=== PATIENT | male | born 1940 | race Caucasian/White ===

== ENCOUNTER 2019-10-28 13:26 | Emergency (ER) | payer MEDICARE ==
[2019-10-28] MEDS ORDERED: 0.9 % SODIUM CHLORIDE 1,000 ML BAG IV ONE (14:25)
[2019-10-28] MEDS ORDERED: CLINDAMYCIN PHOS/D5W 900MG 900 MG/50 ML BAG IVPB ONE (14:25)
[2019-10-28] MEDS ORDERED: ACETAMINOPHEN 500 MG TABLET PO ONE (14:25)
--- NOTE | 2019-10-28 14:26 | Emergency Department Record ---
History of Present Illness - General Chief Complaint: Animal Bite Stated Complaint: CAT BITE RT HAND Time Seen by Provider: 10/28/19 14:19 Source: Patient Mode of Arrival: Ambulatory - History of Present Illness Initial Comments: Patient's own cat bit him last night. The cat is UTD on immunizations. The patient is UTD on immunizations as well. He is borderline diabetic. MD Complaint: Animal bite (right hand) Onset/Timin -: Days(s) Animal: Cat Mechanism: Bite Context: Playing with animal, Provoked, Other - Related Data Patient Tetanus UTD (within 5 yrs): Yes Home Medications Medication Instructions Recorded Confirmed Last Taken Albuterol Sulfate [Proair Hfa] 1 - 2 puff IH .EVERY 4-6 HOURS PRN 10/28/19 10/28/19 10/28/19 Ascorbic Acid [Vitamin C] 500 mg PO DAILY 10/28/19 10/28/19 10/28/19 Aspirin [Lo-Dose Aspirin EC] 81 mg PO DAILY 10/28/19 10/28/19 10/28/19 Atorvastatin Calcium [Lipitor] 40 mg PO QHS 10/28/19 10/28/19 10/28/19 Carvedilol [Coreg] 25 mg PO DAILY 10/28/19 10/28/19 10/28/19 Cetirizine HCl [Zyrtec] 10 mg PO DAILY 10/28/19 10/28/19 10/28/19 Cholecalciferol (Vitamin D3) 2,000 unit PO DAILY 10/28/19 10/28/19 10/28/19 [Vitamin D3] Cyanocobalamin (Vitamin B-12) 1,000 mcg PO DAILY 10/28/19 10/28/19 10/28/19 [Vitamin B-12] Ezetimibe [Zetia] 10 mg PO DAILY 10/28/19 10/28/19 10/28/19 Fluticasone Propionate [Flovent 50 mcg IH DAILY 10/28/19 10/28/19 10/28/19 Diskus] Fluticasone/Vilanterol 200/25 1 puff INH RESP.Q12H 10/28/19 10/28/19 10/28/19 [Breo Ellipta 200-25 Mcg INH] Furosemide [Lasix] 20 mg PO DAILY 10/28/19 10/28/19 10/28/19 Glipizide 10 mg PO DAILY 10/28/19 10/28/19 10/28/19 Losartan Potassium 100 mg PO DAILY 10/28/19 10/28/19 10/28/19 Melatonin 3 mg PO QHS 10/28/19 10/28/19 10/28/19 Metformin HCl 500 mg PO DAILY 10/28/19 10/28/19 10/28/19 Montelukast Sodium [Singulair] 10 mg PO DAILY 10/28/19 10/28/19 10/28/19 Multivitamin [Daily Multiple 1 each PO DAILY 10/28/19 10/28/19 10/28/19 Vitamin] [place]-3 Fatty Acids/Fish Oil [Fish 1 each PO DAILY 10/28/19 10/28/19 10/28/19 Oil 1,000 mg Capsule] Omeprazole 20 mg PO DAILY 10/28/19 10/28/19 10/28/19 Tiotropium Excelsior [Spiriva] 2 puff IH DAILY 10/28/19 10/28/19 10/28/19 Previous Rx's Medication Instructions Recorded Clindamycin HCl [Cleocin HCl] 300 mg PO QID #39 capsule 10/28/19 Allergies Allergy/AdvReac Type Severity Reaction Status Date / Time No Known Drug Allergies Allergy Verified 10/28/19 14:14 Travel Screening - Travel/Exposure Within Last 30 Days Have you traveled within the last 30 days?: No - Travel/Exposure Within Last Year Have you traveled outside the [place] in the last year?: No - Additonal Travel Details Have you been exposed to anyone with a communicable illness?: No - Travel Symptoms Symptom Screening: None Review of Systems Reviewed: No additional complaints except as noted below Constitutional: Reports: As per HPI. Denies: Chills, Fever, Malaise, Night sweats, Weakness, Weight change Eyes: Reports: As per HPI. Denies: Eye discharge, Eye pain, Photophobia, Vision change ENT: Reports: As per HPI. Denies: Congestion, Dental pain, Ear pain, Epistaxis, Hearing loss, Throat pain Respiratory: Reports: As per HPI. Denies: Cough, Dyspnea, Hemoptysis, Stridor, Wheezes Cardiovascular: Reports: As per HPI. Denies: Arrhythmia, Chest pain, Dyspnea on exertion, Edema, Murmurs, Orthopnea, Palpitations, Paroxysmal nocturnal dyspnea, Rheumatic Fever, Syncope Endocrine: Reports: As per HPI. Denies: Fatigue, Heat or cold intolerance, Polydipsia, Polyuria Gastrointestinal: Reports: As per HPI. Denies: Abdominal pain, Constipation, Diarrhea, Hematemesis, Hematochezia, Melena, Nausea, Vomiting Genitourinary: Reports: As per HPI. Denies: Dysuria, Frequency, Hematuria, Incontinence, Retention, Testicular pain, Testicular mass, Urgency Musculoskeletal: Reports: As per HPI. Denies: Arthralgia, Back pain, Gout, Joint swelling, Myalgia, Neck pain Skin: Reports: As per HPI. Denies: Bruising, Change in color, Change in hair/nails, Lesions, Pruritus, Rash Neurological: Reports: As per HPI. Denies: Abnormal gait, Confusion, Headache, Numbness, Paresthesias, Seizure, Tingling, Tremors, Vertigo, Weakness Psychiatric: Reports: As per HPI. Denies: Anxiety, Auditory hallucinations, Depression, Homicidal thoughts, Suicidal thoughts, Visual hallucinations Hematological/Lymphatic: Reports: As per HPI. Denies: Anemia, Blood Clots, Easy bleeding, Easy bruising, Swollen glands Past Medical History - SOCIAL HISTORY Smoking Status: Never smoker Alcohol Use: Rare Drug Use: None - RESPIRATORY Hx Respiratory Disorders: Yes Hx Pneumonia: Yes - CARDIOVASCULAR Hx Cardio Disorders: Yes Hx Hypertension: Yes - NEURO Hx Neuro Disorders: No - GI Hx GI Disorders: Yes Hx Diverticulitis: Yes Hx Hiatal Hernia: Yes - Hx Genitourinary Disorders: No - ENDOCRINE Hx Endocrine Disorders: No Hx Diabetes: Yes (borderline) - MUSCULOSKELETAL Hx Musculoskeletal Disorders: No - PSYCH Hx Psych Problems: No Family Medical History Any Significant Family History?: No Physical Exam - General General Appearance: Alert, Oriented x3, Cooperative, No acute distress - Head Head exam: Normal inspection - Eye Eye exam: Normal appearance, PERRL Pupils: Normal accommodation - ENT ENT exam: Normal exam, Mucous membranes moist, Normal external ear exam, Normal orophraynx, TM's normal bilaterally Ear exam: Normal external inspection. negative: External canal tenderness Nasal Exam: Normal inspection. negative: Discharge, Sinus tenderness Mouth exam: Normal external inspection, Tongue normal Teeth exam: Normal inspection. negative: Dental caries Throat exam: Normal inspection. negative: Tonsillar erythema, Tonsillar exudate - Neck Neck exam: Normal inspection, Full ROM. negative: Tenderness - Respiratory Respiratory exam: Normal lung sounds bilaterally. negative: Respiratory distress - Cardiovascular Cardiovascular Exam: Regular rate, Normal rhythm, Normal heart sounds - GI/Abdominal GI/Abdominal exam: Soft. negative: Tenderness - Rectal Rectal exam: Deferred - exam: Deferred - Extremities Extremities exam: Normal inspection, Full ROM, Normal capillary refill. negative: Tenderness Image of Full Body: 1 - cellulitis up to elbow and marked with pen;. catbite at thenar eminence, no suturing needed or indicated; CMs intact distally - Back Back exam: Reports: Normal inspection, Full ROM. Denies: Muscle spasm, Rash noted, Tenderness - Neurological Neurological exam: Alert, Normal gait, Oriented X3, Reflexes normal - Psychiatric Psychiatric exam: Normal affect, Normal mood - Skin Skin exam: Dry, Intact, Normal color, Warm Course Vital Signs 10/28/19 14:01 Temperature 99.3 F Pulse Rate 73 Respiratory 16 Rate Blood Pressure 137/63 Pulse Ox 98 - Reevaluation(s) Reevaluation #1: Labs returned with normal WBC, however his Hg was 7.4, and he has no prior hg blood work. He denies black or bloody stool, he only takes a baby aspirin daily but is on no other blood thinners. Rectal stool specimen medium brown stool which is guaiac negative. Patient was educated on his low Hg and the importance of following up in the office. PCP paged, Dr. Joelle Cantu air conditioning installer supervisor melania back and will follow him in the office this week for the low Hg of 7.4. The BUN and CR were also mildly elevated today and essentially unchanged from the prior labs. There are no prior CBC's to refer to on the old record. 10/28/19 16:06 10/28/19 16:18 10/28/19 16:19 10/28/19 16:25 Medical Decision Making - Management Options MDM Management: Additional Work-up Planned (e.g. ADM/Transfer/OP Study) (Antonio ochoa) - Data Complexity MDM Data: Labs Ordered and/or Reviewed - Lab Data Result diagrams: 10/28/19 14:48 10/28/19 14:48 Disposition Disposition: Discharge Clinical Impression: Renal insufficiency Cat bite of right hand with infection Qualifiers: Encounter type: initial encounter Qualified Code(s): S61.451A - Open bite of right hand, initial encounter; L08.9 - Local infection of the skin and subcutaneous tissue, unspecified; W55.01XA - Bitten by cat, initial encounter Anemia Qualifiers: Anemia type: unspecified type Qualified Code(s): D64.9 - Anemia, unspecified Disposition: Home, Self-Care Instructions: Animal Bite (ED) Additional Instructions: Recheck here in 12 hours,tonight for repeat IV antibiotics and recheck of wound. Take clindamycin pill at home in 6 hours. No use of right hand until infection clears. Clindamycin 300 QID for 10 days. #40. Call Dr. Orellana's office for recheck of Hg in the office for follow up of anemia within the week. Prescriptions: Clindamycin HCl [Cleocin HCl] 300 mg PO QID #39 capsule Forms: Patient Portal Access Quality - Quality Measures Quality Measures: N/A - Blood Pressure Screening Does Patient Have Any of the Following: No Blood Pressure Classification: Pre-Hypertensive BP Reading Systolic Measurement: 137 Diastolic Measurement: 63 Screening for High Blood Pressure: Patient Exclusion, Hx of HTN [[id number]]
[2019-10-28] MEDS ORDERED: CLINDAMYCIN 600MG/50ML PREMIX 600 MG/50 ML BAG IVPB ONE (14:30)
[2019-10-28 14:51] LABS: ABSOLUTE NEUTROPHIL COUNT 7.43; HEMOGLOBIN 7.4 gm/dl (14.0-18.0); MEAN CELL VOLUME 69.8 fl (81-97); MEAN CORPUSCULAR HEMOGLOBIN 19.1 pg (27-33); MEAN CORPUSCULAR HGB CONC 27.4 g/dl (32-36); MEAN PLATELET VOLUME 9.4 fl (7.4-10.4); PLATELET COUNT 196 K/uL (130-400); RED BLOOD COUNT 3.87 M/uL (4.40-5.70); RED CELL DISTRIBUTION WIDTH 18.9 % (11.5-14.5); WHITE BLOOD COUNT W/O DIFF 9.2 K/uL (4.2-12.2)
[2019-10-28 14:59] LABS: ANISOCYTOSIS 1+; HYPOCHROMIA 1+; PLATELET ESTIMATE NORMAL (NORMAL); POIKILOCYTOSIS 1+
[2019-10-28 15:01] LABS: CREATININE 1.4 mg/dL (0.7-1.2)
[2019-10-28] MEDS ORDERED: CLINDAMYCIN 150 MG CAP PO ONE (16:28)
== END 2019-10-28 16:44 | disposition home or self-care (01) ==
LOC: ER 13:26
DX: S61.451A Open bite of right hand, initial encounter (principal); L03.113 Cellulitis of right upper limb; D64.9 Anemia, unspecified; N28.9 Disorder of kidney and ureter, unspecified; I10 Essential (primary) hypertension; W55.01XA Bitten by cat, initial encounter; Y92.009 Unspecified place in unspecified non-institutional (private) residence as the place of occurrence of the external cause
CPT/HCPCS: 80048; 85027; 96365; 96366; 99284

== ENCOUNTER 2019-10-29 06:27 | Emergency (ER) | payer MEDICARE ==
[2019-10-29] MEDS ORDERED: CLINDAMYCIN 600MG/50ML PREMIX 600 MG/50 ML BAG IVPB ONE (06:35)
--- NOTE | 2019-10-29 06:38 | Emergency Department Record ---
History of Present Illness - General Chief Complaint: Wound, check Stated Complaint: RECHECK Time Seen by Provider: 10/29/19 06:34 Source: Patient Mode of arrival: Ambulatory Limitations: No limitations - History of Present Illness Initial Comments: 79 yo male returns to the ED for re-evaluation of cellulitis to the right hand extending to the forearm region resulting from a cat bite 2 days ago. Patient was given Clindamycin IV yesterday afternoon and asked to return to the ED this morning for re-evaluation. Patient reports that his redness symptoms are improved and more faint this morning. Patient denies fevers, chills, nausea, or vomiting symptoms. Patient denies history of DM. Patient reports that the cat belong to him in his home, reports that the animal can be monitored. MD Complaint: Wound re-check Onset/Timin -: Days(s) Initial Visit For: Animal bite Returns Today for: Needs IV antibiotics, Wound recheck Symptoms Since Prior Visit: No new symptoms Associated Symptoms: None Treatments Prior to Arrival: Given antibiotics on initial visit, Other - Related Data Previous Rx's Medication Instructions Recorded Clindamycin HCl [Cleocin HCl] 300 mg PO QID #39 capsule 10/28/19 Allergies Allergy/AdvReac Type Severity Reaction Status Date / Time No Known Drug Allergies Allergy Verified 10/29/19 06:29 Travel Screening - Travel/Exposure Within Last 30 Days Have you traveled within the last 30 days?: No - Travel/Exposure Within Last Year Have you traveled outside the [place] in the last year?: No - Additonal Travel Details Have you been exposed to anyone with a communicable illness?: No - Travel Symptoms Symptom Screening: None Review of Systems Constitutional: Denies: Chills, Fever, Malaise, Night sweats Eyes: Denies: Eye discharge, Eye pain ENT: Denies: Congestion, Ear pain, Epistaxis Respiratory: Denies: Cough, Dyspnea Cardiovascular: Denies: Chest pain, Dyspnea on exertion Endocrine: Denies: Fatigue, Heat or cold intolerance Gastrointestinal: Denies: Abdominal pain, Nausea, Vomiting Genitourinary: Denies: Incontinence, Retention Musculoskeletal: Denies: Arthralgia, Back pain Skin: Reports: Change in color. Denies: Bruising, Change in hair/nails Neurological: Denies: Abnormal gait, Confusion, Headache, Seizure Psychiatric: Denies: Anxiety Hematological/Lymphatic: Denies: Anemia, Blood Clots Past Medical History - SOCIAL HISTORY Smoking Status: Never smoker Alcohol Use: None Drug Use: None - RESPIRATORY Hx Respiratory Disorders: Yes Hx Pneumonia: Yes - CARDIOVASCULAR Hx Cardio Disorders: Yes Hx Hypertension: Yes - NEURO Hx Neuro Disorders: No - GI Hx GI Disorders: Yes Hx Diverticulitis: Yes Hx Hiatal Hernia: Yes - Hx Genitourinary Disorders: No - ENDOCRINE Hx Endocrine Disorders: No Hx Diabetes: Yes (borderline) - MUSCULOSKELETAL Hx Musculoskeletal Disorders: No - PSYCH Hx Psych Problems: No Family Medical History Any Significant Family History?: No Physical Exam - General General Appearance: Alert, Oriented x3, Cooperative, No acute distress Limitations: No limitations - Head Head exam: Atraumatic, Normocephalic, Normal inspection Head exam detail: negative: Abrasion, Contusion, Del Toro's sign, General tenderness, Hematoma, Laceration - Eye Eye exam: Normal appearance. negative: Conjunctival injection, Periorbital swelling, Periorbital tenderness, Scleral icterus - ENT Ear exam: negative: Auricular hematoma, Auricular trauma Nasal Exam: negative: Active bleeding, Discharge, Dried blood, Foreign body Mouth exam: negative: Drooling, Laceration, Muffled voice, Tongue elevation - Neck Neck exam: Normal inspection. negative: Meningismus, Tenderness - Respiratory Respiratory exam: Normal lung sounds bilaterally. negative: Rales, Respiratory distress, Rhonchi, Stridor - Cardiovascular Cardiovascular Exam: Regular rate, Normal rhythm, Normal heart sounds - GI/Abdominal GI/Abdominal exam: Soft. negative: Rebound, Rigid, Tenderness - Rectal Rectal exam: Deferred - exam: Deferred - Extremities Extremities exam: Tenderness, Other (STS and erythema to the dorsal aspect of the right hand, erythema extends to the mid-forearm region but appears improved from previously demarcated area. (1) puncture wound is present to the base of the right thumb dorsally, no evidence for tenosynovitis is present on examination.). negative: Calf tenderness, Pedal edema - Back Back exam: Denies: CVA tenderness (R), CVA tenderness (L) - Neurological Neurological exam: Alert, Normal gait, Oriented X3 - Psychiatric Psychiatric exam: Normal affect, Normal mood - Skin Skin exam: Erythema (as described above). negative: Abrasion Type of lesion: negative: abrasion Course Vital Signs 10/29/19 06:31 Pulse Rate 76 Respiratory 18 Rate Blood Pressure 149/67 Pulse Ox 96 - Reevaluation(s) Reevaluation #1: 10/29/19 06:41 Patient was seen and examined Findings appear c/w cellulitis resulting form cat bite. Will administer repeat IV Clindamycin dose per previous providers's recommendation Rx was sent to pharmacy yesterday. Patient was instructed that he does not need to return to ED for re-evaluation unless his symptoms worsen. Patient appears stable for discharge at this time. Disposition Disposition: Discharge Clinical Impression: Cellulitis of hand, right Disposition: Home, Self-Care Condition: (2) Stable Instructions: Cellulitis (ED) Additional Instructions: Return to ED if your symptoms worsen or if you have any concerns. Clindamycin as directed. Follow-up with your family doctor in 1-3 days as directed. Forms: Patient Portal Access Time of Disposition: 06:44 Quality - Quality Measures Quality Measures: N/A - Blood Pressure Screening Does Patient Have Any of the Following: Active Dx of HTN Blood Pressure Classification: Hypertensive Reading Systolic Measurement: 149 Diastolic Measurement: 67 Screening for High Blood Pressure: Patient Exclusion, Hx of HTN [G9744]
== END 2019-10-29 07:40 | disposition home or self-care (01) ==
LOC: ER 06:27
DX: S61.451A Open bite of right hand, initial encounter (principal); L03.113 Cellulitis of right upper limb; D64.9 Anemia, unspecified; N28.9 Disorder of kidney and ureter, unspecified; I10 Essential (primary) hypertension; W55.01XA Bitten by cat, initial encounter; Y92.009 Unspecified place in unspecified non-institutional (private) residence as the place of occurrence of the external cause
CPT/HCPCS: 96365; 99282